=== PATIENT | male | born 1985 | race African-American/Black ===

== ENCOUNTER 2017-01-19 07:52 | Emergency (ER) | payer OTHER ==
[~2017-01-19] VITALS: Ht 182.8 cm; Wt 74.8 kg
[~2017-01-19 07:52] MED LIST: PEN-VEE K500 MG PO; ULTRAM50 MG PO
[2017-01-19] MEDS ORDERED: OMEPRAZOLE D/R20 MG PO (08:11)
[2017-01-19] MEDS ORDERED: Motrin,Rufen800 MG PO ×2 (08:34→10:05)
[2017-01-19] MEDS ORDERED: CYCLOBENZAPRINE10 MG PO ×2 (08:34→10:05)
== END 2017-01-19 10:02 | disposition home or self-care (01) ==
LOC: ED 07:52
DX: S29.012A Strain of muscle and tendon of back wall of thorax, initial encounter (principal); Z79.899 Other long term (current) drug therapy; V87.7XXA Person injured in collision between other specified motor vehicles (traffic), initial encounter; Y93.89 Activity, other specified; Y92.413 State road as the place of occurrence of the external cause; Y99.8 Other external cause status

== ENCOUNTER 2020-08-04 10:53 | Emergency (ER) | payer SELFPAY ==
[~2020-08-04] VITALS: Ht 185.4 cm; Wt 90.7 kg
[~2020-08-04 10:53] MED LIST changes: +CYCLOBENZAPRINE10 MG PO; +Motrin,Rufen800 MG PO; +OMEPRAZOLE D/R20 MG PO
[2020-08-04] MEDS ORDERED: IBUPROFEN600 MG PO (11:32)
[2020-08-04] MEDS ORDERED: AMOXICILLIN500 M2 PO (11:32)
== END 2020-08-04 11:40 | disposition home or self-care (01) ==
LOC: ED 10:53
DX: K08.89 Other specified disorders of teeth and supporting structures (principal); Z79.899 Other long term (current) drug therapy